=== PATIENT | female | born 2000 | race Caucasian/White ===

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

== ENCOUNTER → 2020-07-15 | Outpatient (CLI) | payer MEDICAID | LOC: COL.CARD 06:47 | DX: Z01.818 Encounter for other preprocedural examination (principal); Z98.2 Presence of cerebrospinal fluid drainage device ==

== ENCOUNTER 2020-09-20 23:04 | Emergency (ER) | payer MEDICAID ==
[~2020-09-20] VITALS: Ht 165.1 cm; Wt 63.6 kg
[2020-09-20 23:52] LABS: BASO % 0.3 % (0.0-2.0); EOS % 0.3 % (0-4.0); GRAN # 7.5 (1.4-6.5); GRAN % 83.5 % (42.2-75.2); HEMATOCRIT 40.9 % (35.0-45.0); HEMOGLOBIN 13.6 g/dl (12.0-15.0); LYMPH # 0.5 (1.2-3.4); LYMPH % 5.5 % (20.0-51.0); MEAN CELL VOLUME 90 fl (80.0-95.0); MEAN CORPUSCULAR HEMOGLOBIN 30 pg (26.0-32.0); MEAN CORPUSCULAR HGB CONC 33 g/dl (33.0-37.0); MEAN PLATELET VOLUME 9.1 fl (7.4-10.4); MONO # 0.9 (0.1-0.6); MONO % 10.2 % (1.7-9.3); PLATELET COUNT 298 K/mm3 (130-400); RED BLOOD COUNT 4.55 M/mm3 (4.10-5.30); REDCELL DISTRIBUTION WIDTH-CV 12.3 % (11.5-14.5)
[2020-09-21 00:02] LABS: ALBUMIN 4.3 gm/dL (3.5-5.0); BILIRUBIN,TOTAL 0.3 mg/dL (0.0-1.0); CALCIUM 9.3 mg/dL (8.4-10.2); CREATININE, serum 0.82 (0.52-1.25); POTASSIUM 4.2 mmol/L (3.4-5.0); TOTAL PROTEIN 7.3 gm/dL (6.4-8.2)
[2020-09-21 01:15] VITALS: BP 102/58; PULSE 98; TEMP 98.9
== END 2020-09-21 01:15 | disposition home or self-care (01) ==
LOC: COL.ER 23:04
PROVIDERS: Emergency Medicine Emergency Medical Services
DX: T67.5XXA Heat exhaustion, unspecified, initial encounter (principal); Z20.822 Contact with and (suspected) exposure to COVID-19; X58.XXXA Exposure to other specified factors, initial encounter
CPT/HCPCS: J2405; J7030

== ENCOUNTER 2021-01-24 13:26 | Emergency (ER) | payer MEDICAID ==
[~2021-01-24] VITALS: Ht 165.1 cm; Wt 61.4 kg
[2021-01-24 13:47] VITALS: BP 110/66
[2021-01-24] MEDS ORDERED: SYEDA 3 MG-0.031 TAB PO (13:54)
[2021-01-24] MEDS ORDERED: TAMIFLU 75MG75 MG PO (14:37)
[2021-01-24 14:47] VITALS: PULSE 95; TEMP 99.8
== END 2021-01-24 14:47 | disposition home or self-care (01) ==
LOC: COL.ER 13:26
DX: J10.1 Influenza due to other identified influenza virus with other respiratory manifestations (principal); J45.909 Unspecified asthma, uncomplicated; Z20.822 Contact with and (suspected) exposure to COVID-19